=== PATIENT | male | born 1975 | race Caucasian/White ===

== ENCOUNTER 2020-02-21 00:09 | Emergency (ER) | payer SELFPAY ==
[~2020-02-21] VITALS: Ht 188 cm; Wt 131.8 kg
[2020-02-21 00:16] VITALS: TEMP 98.5
[2020-02-21 00:42] LABS: HEMATOCRIT 45.2 % (42.0-52.0); HEMOGLOBIN 16.1 g/dl (13.5-18.0); MEAN CELL VOLUME 91 fl (80.0-100.0); MEAN CORPUSCULAR HEMOGLOBIN 33 pg (27.0-31.0); MEAN CORPUSCULAR HGB CONC 36 g/dl (33.0-37.0); MEAN PLATELET VOLUME 9.9 fl (7.4-10.4); PLATELET COUNT 247 K/mm3 (130-400); RED BLOOD COUNT 4.95 M/mm3 (4.20-5.60)
[2020-02-21] MEDS ORDERED: GLUCOPHAGE1000 MG PO (00:52)
[2020-02-21] MEDS ORDERED: GLUCOTROL10 MG PO (00:52)
[2020-02-21 00:53] LABS: ALANINE AMINOTRANSFERASE 115 U/L (4-49); ALKALINE PHOSPHATASE 47 U/L (50-136); ANION GAP 11 mmol/L (7-16); AST,SGOT 61 U/L (15-37); BILIRUBIN,TOTAL 0.7 mg/dL (0.0-1.0); BLOOD UREA NITROGEN 15 mg/dL (9-20); CALCIUM 9.8 mg/dL (8.4-10.2); CARBON DIOXIDE 24 mmol/L (22-30); CHLORIDE 103 mmol/L (98-107); GLUCOSE 159 mg/dL (74-106); POTASSIUM 4.2 mmol/L (3.4-5.0); SODIUM 138 mmol/L (137-145); TOTAL PROTEIN 8.5 gm/dL (6.4-8.2)
[2020-02-21] MEDS ORDERED: VIAGRA100 M1 (00:53)
[2020-02-21 01:31] LABS: LIPASE 75 U/L (23-300)
[2020-02-21 01:45] LABS: TROPONIN-I < 0.012 ng/mL (0.000-0.035)
[2020-02-21 02:14] LABS: BAND 8 % (0-10); LYMPHOCYTE 51 % (20.0-51.0); NEUTROPHILS 33 % (42.0-75.2); PLATELET ESTIMATE NORMAL (NORMAL)
[2020-02-21 02:15] LABS: TEAR DROP CELLS 1+
[2020-02-21 03:31] VITALS: BP 122/85; PULSE 75
== END 2020-02-21 03:33 | disposition home or self-care (01) ==
LOC: COL.ER 00:09
PROVIDERS: Nurse Practitioner
DX: R10.13 Epigastric pain (principal); R07.9 Chest pain, unspecified; E11.9 Type 2 diabetes mellitus without complications; K21.9 Gastro-esophageal reflux disease without esophagitis; Z79.84 Long term (current) use of oral hypoglycemic drugs; Z87.891 Personal history of nicotine dependence
CPT/HCPCS: J2270; J2405; J7030; Q9967

== ENCOUNTER 2020-04-18 12:20 | Emergency (ER) | payer SELFPAY ==
[~2020-04-18] VITALS: Ht 188 cm; Wt 127.3 kg
[~2020-04-18 12:20] MED LIST: GLUCOPHAGE1000 MG PO; GLUCOTROL10 MG PO; VIAGRA100 M1
[2020-04-18 12:25] VITALS: TEMP 97.2
[2020-04-18 13:18] LABS: BASO # 0.1 (0.0-0.2); BASO % 0.6 % (0.0-2.0); EOS # 0.2 (0.0-0.7); EOS % 2.5 % (0-4.0); GRAN # 4.4 (1.4-6.5); GRAN % 49.5 % (42.2-75.2); HEMATOCRIT 46.6 % (42.0-52.0); HEMOGLOBIN 16.7 g/dl (13.5-18.0); LYMPH # 3.6 (1.2-3.4); MEAN CELL VOLUME 91 fl (80.0-100.0); MEAN CORPUSCULAR HEMOGLOBIN 32 pg (27.0-31.0); MEAN CORPUSCULAR HGB CONC 36 g/dl (33.0-37.0); MEAN PLATELET VOLUME 10.3 fl (7.4-10.4); MONO # 0.6 (0.1-0.6); MONO % 7.1 % (1.7-9.3); PLATELET COUNT 254 K/mm3 (130-400); RED BLOOD COUNT 5.15 M/mm3 (4.20-5.60); REDCELL DISTRIBUTION WIDTH-CV 13.2 % (11.5-14.5)
[2020-04-18 13:29] LABS: ALANINE AMINOTRANSFERASE 146 U/L (4-49); ALKALINE PHOSPHATASE 53 U/L (50-136); ANION GAP 13 mmol/L (7-16); AST,SGOT 81 U/L (15-37); BILIRUBIN,TOTAL 0.8 mg/dL (0.0-1.0); BLOOD UREA NITROGEN 11 mg/dL (9-20); CARBON DIOXIDE 23 mmol/L (22-30); CHLORIDE 102 mmol/L (98-107); CREATININE, serum 0.72 (0.66-1.25); GLUCOSE 197 mg/dL (74-106); POTASSIUM 4.2 mmol/L (3.4-5.0); SODIUM 138 mmol/L (137-145); TOTAL PROTEIN 8.5 gm/dL (6.4-8.2)
[2020-04-18 13:41] LABS: TROPONIN-I < 0.012 ng/mL (0.000-0.035)
[2020-04-18 15:45] VITALS: BP 121/51; PULSE 68
== END 2020-04-18 15:50 | disposition home or self-care (01) ==
LOC: COL.ER 12:20
PROVIDERS: Nurse Practitioner Primary Care
DX: I20.9 Angina pectoris, unspecified (principal); I10 Essential (primary) hypertension; E11.9 Type 2 diabetes mellitus without complications; Z79.84 Long term (current) use of oral hypoglycemic drugs
CPT/HCPCS: J2270

== ENCOUNTER → 2020-05-16 | Outpatient (CLI) | payer SELFPAY | LOC: COL.RAD 13:00 | DX: Z01.812 Encounter for preprocedural laboratory examination (principal); I71.9 Aortic aneurysm of unspecified site, without rupture; I71.00 Dissection of unspecified site of aorta | CPT/HCPCS: Q9967 ==

== ENCOUNTER 2020-06-27 08:12 | Day surgery (SDC) | payer SELFPAY ==
[~2020-06-27] VITALS: Ht 188 cm; Wt 129.5 kg
[2020-06-27] MEDS ORDERED: IMDUR 30MG30 MG/TAB PO (08:32)
[2020-06-27] MEDS ORDERED: TOPROL XL 25MG25 MG PO (08:33)
[2020-06-27] MEDS ORDERED: PROVENTIL0.09 MG/A1 IH (08:33)
[2020-06-27 08:56] VITALS: BP 120/78; PULSE 69; TEMP 98.4
[2020-06-27 10:05] VITALS: BP 113/84; PULSE 72; TEMP 96.9
--- NOTE | 2020-06-27 10:05 | NUR ---
PATIENT TRANSPORTED BACK TO [facility] ACCOMPANIED BY ENDO STAFF. PATIENT AWAKE AND TALKING WITH STAFF. PATIENT AMBULATED FROM CART TO CHAIR WITH STEADY GAIT. MONITORS REAPPLIED. VSS. GIRLFRIEND AT BEDSIDE. PATIENT REQUESTED COFFEE AND MUFFIN. PATIENT DENIES DISCOMFORT AND NAUSEA.
--- NOTE | 2020-06-27 10:20 | NUR ---
VSS. PATIENT TALKING WITH GIRLFRIEND. PATIENT TOLERATES FOOD AND COFFEE WITHOUT PROBLEMS. DENIES DISCOMFORT AND NAUESEA.
--- NOTE | 2020-06-27 10:30 | NUR ---
VSS ON ROOM AIR. DR FABIAN IN ROOM AND SPEAKS WITH PATIENT AND GIRLFRIEND. ANSWER QUESTIONS.
[2020-06-27 10:34] VITALS: BP 129/81; PULSE 71
[2020-06-27 10:45] VITALS: BP 134/83; PULSE 67
--- NOTE | 2020-06-27 10:45 | NUR ---
VSS. PATIENT DENIES DISCOMFORT AND NAUSEA WITH FOOD AND DRINK. PATIENT ALERT AND TALKING. IV SITE DC'D WITH CATHETER TIP INTACT. PRESSURE AND BANDAGE APPLIED. PATIENT CHANGES INTO STREET CLOTHES.
--- NOTE | 2020-06-27 10:50 | NUR ---
DISCHARGE INSTRUCTIONS GIVEN VERBAL AND DISCHARGE PACKET INFORMATION REVIEWED. PATIENT TO CALL DR FABIAN OFFICE FOR FOLLOW UP APPIONTMENT. QUESTIONS ANSWERED AND PATIENT VOICED UNDERSTANDING. PATIENT DISCHARGED PER WHEEL CHAIR ACCOMPANIED BY STAFF NURSE TO PRIVATE VECHILE. GIRLFRIEND DRIVING.
== END 2020-06-27 10:55 | disposition home or self-care (01) ==
LOC: SDCO 08:12
DX: K52.9 Noninfective gastroenteritis and colitis, unspecified (principal); K92.1 Melena; K64.0 First degree hemorrhoids; Z20.828 Contact with and (suspected) exposure to other viral communicable diseases; K29.30 Chronic superficial gastritis without bleeding; K29.80 Duodenitis without bleeding; K21.9 Gastro-esophageal reflux disease without esophagitis; E11.9 Type 2 diabetes mellitus without complications; J45.909 Unspecified asthma, uncomplicated; R20.2 Paresthesia of skin; F17.210 Nicotine dependence, cigarettes, uncomplicated; F17.290 Nicotine dependence, other tobacco product, uncomplicated; Z79.899 Other long term (current) drug therapy; Z79.84 Long term (current) use of oral hypoglycemic drugs
CPT/HCPCS: J2704; J7030

== ENCOUNTER 2020-07-05 11:29 | Inpatient (IN) | payer SELFPAY ==
[~2020-07-05] VITALS: Ht 188 cm; Wt 125.0 kg
[2020-07-05] VITALS (271 sets, daily range): BP systolic 114–160; BP diastolic 69–103; PULSE 50–74; TEMP 97–98.1; O2SAT 95–100
[~2020-07-05 11:29] MED LIST changes: +IMDUR 30MG30 MG/TAB PO; +PROVENTIL0.09 MG/A1 IH; +TOPROL XL 25MG25 MG PO
[2020-07-05 11:57] LABS: HEMATOCRIT 48.4 % (42.0-52.0); HEMOGLOBIN 16.9 g/dl (13.5-18.0); MEAN CELL VOLUME 91 fl (80.0-100.0); MEAN CORPUSCULAR HEMOGLOBIN 32 pg (27.0-31.0); MEAN CORPUSCULAR HGB CONC 35 g/dl (33.0-37.0); MEAN PLATELET VOLUME 10.4 fl (7.4-10.4); PLATELET COUNT 272 K/mm3 (130-400); RED BLOOD COUNT 5.31 M/mm3 (4.20-5.60); REDCELL DISTRIBUTION WIDTH-CV 12.6 % (11.5-14.5)
[2020-07-05 12:02] LABS: PROTHROMBIN TIME 11.4 SECONDS (9.7-12.8)
[2020-07-05 12:09] LABS: ALANINE AMINOTRANSFERASE 111 U/L (4-49); ALBUMIN 5.2 gm/dL (3.5-5.0); ALKALINE PHOSPHATASE 62 U/L (50-136); ANION GAP 12 mmol/L (7-16); AST,SGOT 61 U/L (15-37); BILIRUBIN,TOTAL 0.9 mg/dL (0.0-1.0); BLOOD UREA NITROGEN 9 mg/dL (9-20); CALCIUM 9.7 mg/dL (8.4-10.2); CARBON DIOXIDE 24 mmol/L (22-30); CHLORIDE 105 mmol/L (98-107); CREATININE, serum 0.72 (0.66-1.25); GLUCOSE 233 mg/dL (74-106); LIPASE 124 U/L (23-300); POTASSIUM 4.1 mmol/L (3.4-5.0); SODIUM 141 mmol/L (137-145); TOTAL PROTEIN 8.5 gm/dL (6.4-8.2)
[2020-07-05 12:35] LABS: BASOPHIL 1 % (0-2); EOSINOPHIL 4 % (0-4); LYMPHOCYTE 46 % (20.0-51.0); NEUTROPHILS 45 % (42.0-75.2)
[2020-07-05 12:37] LABS: PLATELET ESTIMATE NORMAL (NORMAL)
[2020-07-05 12:46] LABS: TROPONIN-I < 0.012 ng/mL (0.000-0.035)
--- NOTE | 2020-07-05 12:57 | NUR ---
SEE MEREL[facility] FOR ALL MEDICATION ADMIN TIMES, INTRA AND POST SEDATION ASSESSMENTS
--- NOTE | 2020-07-05 16:30 | NUR ---
Refuses cardiac cath checks at this time.
[2020-07-06] VITALS (526 sets, daily range): BP systolic 110–129; BP diastolic 42–93; PULSE 62–90; TEMP 97.9–98.2; O2SAT 93–100
[2020-07-06 05:48] LABS: BASO # 0.1 (0.0-0.2); BASO % 0.5 % (0.0-2.0); EOS # 0.6 (0.0-0.7); EOS % 5.5 % (0-4.0); GRAN # 5.1 (1.4-6.5); GRAN % 51.5 % (42.2-75.2); HEMATOCRIT 42.9 % (42.0-52.0); HEMOGLOBIN 15.5 g/dl (13.5-18.0); LYMPH # 3.6 (1.2-3.4); LYMPH % 36.2 % (20.0-51.0); MEAN CELL VOLUME 91 fl (80.0-100.0); MEAN CORPUSCULAR HEMOGLOBIN 33 pg (27.0-31.0); MEAN CORPUSCULAR HGB CONC 36 g/dl (33.0-37.0); MEAN PLATELET VOLUME 9.9 fl (7.4-10.4); MONO # 0.6 (0.1-0.6); PLATELET COUNT 225 K/mm3 (130-400); RED BLOOD COUNT 4.74 M/mm3 (4.20-5.60); REDCELL DISTRIBUTION WIDTH-CV 12.6 % (11.5-14.5)
[2020-07-06 06:02] LABS: CHOLESTEROL RISK RATIO 2.7; CREATININE, serum 0.67 (0.66-1.25); POTASSIUM 3.8 mmol/L (3.4-5.0)
[2020-07-06] MEDS ORDERED: BRILINTA90 MG PO (10:11)
[2020-07-06] MEDS ORDERED: LIPITOR 80MG80 MG PO (10:12)
[2020-07-06] MEDS ORDERED: ASPIRIN E.C. 8181 MG PO (10:13)
[2020-07-06] MEDS ORDERED: TOPROL XL 50MG50 MG PO (10:13)
--- NOTE | 2020-07-06 12:00 | NUR ---
Ambulatory to POV with girl friend for discharge. Instructions, follow up appointments and medication changes reviewed and provided. Denies needs. Cath site to Right Radial artery CDI.
== END 2020-07-06 12:01 | disposition home or self-care (01) | DRG 249 ==
LOC: COL.ER 11:29 → ICU 11:54
PROVIDERS: Emergency Medicine; ADMIT Internal Medicine
PROC: 02703DZ Dilation of Coronary Artery, One Artery with Intraluminal Device, Percutaneous Approach (ICD-10-PCS; principal; 2020-07-05)
PROC: B2111ZZ Fluoroscopy of Multiple Coronary Arteries using Low Osmolar Contrast (ICD-10-PCS; 2020-07-05)
DX: I25.110 Atherosclerotic heart disease of native coronary artery with unstable angina pectoris (principal); E11.9 Type 2 diabetes mellitus without complications; E66.9 Obesity, unspecified; E78.5 Hyperlipidemia, unspecified; F17.200 Nicotine dependence, unspecified, uncomplicated; Z79.84 Long term (current) use of oral hypoglycemic drugs; Z68.35 Body mass index [BMI] 35.0-35.9, adult
CPT/HCPCS: 99223-AI; 99239; J0583; J1644; J2250; J3010; J7030

== ENCOUNTER 2020-08-15 15:26 | Outpatient (RCR) | payer SELFPAY ==
[~2020-08-15 15:26] MED LIST changes: +ASPIRIN E.C. 8181 MG PO; +BRILINTA90 MG PO; +LIPITOR 80MG80 MG PO; +TOPROL XL 50MG50 MG PO
== END 2020-08-29 06:40 | disposition home or self-care (01) ==
LOC: COL.CR 15:26
DX: Z48.812 Encounter for surgical aftercare following surgery on the circulatory system (principal); Z95.5 Presence of coronary angioplasty implant and graft